=== PATIENT | male | born 1970 | race Caucasian/White ===

== ENCOUNTER 2019-05-30 19:17 | Inpatient (IN) | payer OTHER ==
[~2019-05-30 19:17] MED LIST: ISOVUE-370 76%-LOCM 1 ML ONE
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
[2019-05-30 19:56] LABS: #Eosinphils 0.2 thou/uL (0.0-0.7); #Lymphocytes 0.7 thou/uL (1.20-3.40); #Monocytes 0.7 thou/uL (0.11-0.59); #Neutrophils 9.8 thou/uL (1.40-6.50); %Basophils 0.1 % (0.0-1.0); %Eosinophils 1.7 % (0.0-10.0); %Lymphocytes 6.3 % (21.0-51.0); %Monocytes 6.2 % (0.0-10.0); %Neutrophils 85.6 % (42.0-75.0); Hemoglobin 14.2 g/dL (14.0-18.0); Mean Corpuscular HGB CONC 32.7 g/dL (32.0-36.0); Mean Corpuscular Hemoglobin 29.5 pg (27.0-31.0); Mean Corpuscular Volume 90.2 fL (78.0-98.0); Mean Platelet Volume 8.1 fL (7.4-10.4); Platelet Count 278 thou/uL (130-400); RBC Distribution Width 11.6 % (11.5-14.5); White Blood Cell (WBC) Count 11.4 thou/uL (4.8-10.8)
[2019-05-30] MEDS ORDERED: Morphine 4 MG/ML VIAL ONE ×2 (19:57→22:15)
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
[2019-05-30] MEDS ORDERED: Adacel (T-DAP) 0.5 ML SYRINGE ONE (19:58)
[2019-05-30] MEDS ORDERED: Ondansetron PF 4 MG/2 ML Vial ONE (19:58)
[2019-05-30 20:02] LABS: PTT 25.5 SEC (22.9-36.1); Prothrombin Time 13.4 SEC (12.0-14.7)
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
[2019-05-30 20:18] LABS: ALT (SGPT) 32 U/L (8-55); AST (SGOT) 61 U/L (5-34); Albumin 4.2 g/dL (3.5-5.0); Alkaline Phosphatase 88 U/L (40-110); Anion Gap 13 mmol/L (10-20); BUN (Urea Nitrogen) 12 mg/dL (8.9-20.6); Bilirubin, Total 0.7 mg/dL (0.2-1.2); Calc. Creatinine Clearance 0 mL/min (70-130); Calcium 9.5 mg/dL (7.8-10.44); Carbon Dioxide 26 mmol/L (22-29); Chloride 103 mmol/L (98-107); Estimated GFR-MDRD 61; Globulin 2.9 g/dL (2.4-3.5); Glucose 100 mg/dL (70-105); Potassium 3.8 mmol/L (3.5-5.1); Protein, Total 7.1 g/dL (6.0-8.3); Sodium 138 mmol/L (136-145)
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
[2019-05-30 21:23] LABS: Acetaminophen Less than 6.0 mcg/mL (10.0-30.0); Alcohol Less than 10 mg/dL (Less than 10); Salicylate Less than 8.0 mg/dL (15.0-30.0)
[2019-05-30] MEDS ORDERED: Dextrose 5% in Water 1,000 ML IV PRN ×2 (21:43→21:53)
[2019-05-30] MEDS ORDERED: Promethazine HCl 25 MG/ML VIAL IM/IV PRN (21:43)
[2019-05-30] MEDS ORDERED: hydrALAZINE 20 MG/ML VIAL SLOW IVP PRN (21:43)
[2019-05-30] MEDS ORDERED: Ondansetron PF 4 MG/2 ML Vial IVP PRN (21:43)
[2019-05-30] MEDS ORDERED: Morphine 4 MG/ML VIAL SLOW IVP PRN (21:43)
[2019-05-30] MEDS ORDERED: Dextrose 50% Abboject 50 ML SYRINGE SLOW IVP PRN ×2 (21:43→21:53)
[2019-05-30 21:54] LABS: Bilirubin Negative (Negative); Blood, Urine 2+ (Negative); Clarity Clear (Clear); Glucose, Urine (Dipstick) Normal (Negative); Leukocyte Negative Leu/uL (Negative); Nitrite Negative (Negative); Protein, Urine (Dipstick) 200 mg/dL (Neg-Trace); RBC/HPF 21-50 HPF (0-3); Squamous Epithelial None Seen HPF (0-3)
[2019-05-30 22:01] LABS: Amphetamine Detected (NotDetected); Barbiturates Screen Not Detected (NotDetected); Benzodiazepine Screen Not Detected (NotDetected); Cocaine Metabolite Screen Not Detected (NotDetected); Medtox Control Line Valid? VALID (VALID); Medtox Reader # READER 4; Methadone Not Detected (NotDetected); Methamphetamine Detected (NotDetected); Opiate Screen Detected (NotDetected); Oxycodone Screen Not Detected (NotDetected); Phencyclidine (PCP) Not Detected (NotDetected); THC/Cannabinoid Screen Not Detected (NotDetected); Tricyclic Screen Not Detected (NotDetected)
[2019-05-30 22:08] LABS: Bacteria/HPF Rare-Few HPF (None Seen); Sperm/HPF Rare HPF (None Seen)
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
[2019-05-31 00:46] VITALS: BMI 28.7
[2019-05-31] MEDS: Sodium Chloride 0.9% 1,000 ML IV SCH ×3 (01:04→17:28)
[2019-05-31 04:11] LABS: #Lymphocytes 0.4 thou/uL (1.20-3.40); #Monocytes 0.8 thou/uL (0.11-0.59); #Neutrophils 7.7 thou/uL (1.40-6.50); %Basophils 0.1 % (0.0-1.0); %Eosinophils 0.2 % (0.0-10.0); %Monocytes 9.2 % (0.0-10.0); %Neutrophils 86.6 % (42.0-75.0); Hemoglobin 12.7 g/dL (14.0-18.0); Mean Corpuscular HGB CONC 34.1 g/dL (32.0-36.0); Mean Corpuscular Hemoglobin 31.2 pg (27.0-31.0); Mean Corpuscular Volume 91.5 fL (78.0-98.0); Mean Platelet Volume 7.8 fL (7.4-10.4); Platelet Count 222 thou/uL (130-400); RBC Distribution Width 11.6 % (11.5-14.5); Red Blood Cell (RBC) Count 4.08 mill/uL (4.70-6.10); White Blood Cell (WBC) Count 8.9 thou/uL (4.8-10.8)
[2019-05-31 04:42] LABS: Anion Gap 10 mmol/L (10-20); BUN (Urea Nitrogen) 16 mg/dL (8.9-20.6); Calc. Creatinine Clearance 106 mL/min (70-130); Calcium 8.5 mg/dL (7.8-10.44); Carbon Dioxide 26 mmol/L (22-29); Chloride 105 mmol/L (98-107); Estimated GFR-MDRD 77; Glucose 134 mg/dL (70-105); Magnesium 2.1 mg/dL (1.6-2.6); Phosphorus 3.8 mg/dL (2.3-4.7); Potassium 4.2 mmol/L (3.5-5.1); Sodium 137 mmol/L (136-145)
--- NOTE | 2019-05-31 07:19 | CT ---
CT BRAIN WITHOUT CONTRAST: Date: 05/31/19 COMPARISON: 05/30/19. HISTORY: Cerebral contusion in frontal lobe. TECHNIQUE: Multiple contiguous axial images were obtained in a CT of the brain without contrast. FINDINGS: There is a stable small left frontal contusion with hyperdensity consistent with hemorrhagic conversi on. No intraventricular hemorrhage or hydrocephalus seen. No large confluent infarction seen. The calvarium and overlying soft tissues are unremarkable. The visualized paranasal sinuses and masto id air cells are well aerated. IMPRESSION: Stable left frontal contusion. POS: C
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
[2019-05-31] MEDS ORDERED: FLU VACC QS2019-20(6MOS UP)/PF 60 MCG/0.5 ML SYRINGE IM ONE (09:00)
[2019-05-31] MEDS: Famotidine/PF 20 mg/2ml Vial SLOW IVP SCH ×2 (09:17→20:33)
--- NOTE | 2019-05-31 09:22 | RAD ---
CHEST 1 VIEW PORTABLE: Date: 05/31/19 HISTORY: Left apical pneumothorax. FINDINGS: Monitor leads overlie the chest. Heart size is normal. The lungs are clear. No identifiable pneumotho rax. IMPRESSION: No significant acute intrathoracic disease. POS: TPC
--- NOTE | 2019-05-31 09:26 | PRG ---
DATE OF SERVICE: 05/31/2019 SUBJECTIVE: Mr. Swann this morning is more comfortable, though admittedly has significant pain with most movements or with even mild physical touch, most to the hands and feet. He has sensation in all four upper extremities and has minimal movement in the bilateral upper and bilateral lower extremities. He has the most motor function in the left lower extremity, was found that he has cord edema, T2 signal change at C4-5 on the MRI that was obtained overnight. The plan will remain the same. There is no large traumatic disk. There is no obvious ligamentous injury. The small chip fracture at the anterior inferior plate of C4 does appear to be acute on MRI. From the surgery's plan, at this time will likely be noninterventional. He will need aggressive rehab and continue to follow up. Job ID: [id number]
[2019-05-31] MEDS ORDERED: Acetaminophen 1,000 MG in Premix Bag 1 BAG IVPB SCH (10:00)
--- NOTE | 2019-05-31 10:22 | CT ---
CTA OF THE HEAD WITH AND WITHOUT IV CONTRAST AND 3-D REFORMATTED IMAGING. CTA OF THE NECK WITH IV CONTRAST AND 3-D REFORMATTED IMAGING. INDICATION: Level 2 trauma concern for stroke COMPARISON: Noncontrast CT the brain dated May 22, 2019 FINDINGS: CTA OF THE HEAD WITH AND WITHOUT CONTRAST: CTA OF THE BRAIN: Right ICA: Patent. Right MCA: Patent. Right MAYELA: Patent. ACOM: Patent. Left ICA: Patent. Left MCA: Patent. Left MAYELA: Patent. PCOMs: Patent. Vertebral arteries: There is poor opacification of the distal vertebral artery at the level of C1 ramires spicious for dissection and complete occlusion. There is complete occlusion of the mid left cervical vertebral artery at the level of C4 with reconstitution at the level of the upper C3 vertebr al level. Basilar Artery: Patent. senior c software developer: Patent. Incidentals: None. CTA OF THE NECK WITH CONTRAST: Right CCA: Patent. Right ICA: Patent. Right Subclavian: Patent. Right Vertebral Artery: Patent. Left CCA: Patent. Left ICA: Patent. Left Subclavian: Patent. Left Vertebral Artery: The left vertebral artery is occluded at the level of the C4 vertebral level and reconstitutes at the overt C3 vertebral level. The distal left cervical vertebral artery occludes at the level of C1 and reconstitutes just proximal to the posterior left C1 arch. Aerodigestive tract: Clear. Parotids/Submandibular/Thyroid glands: Normal. Lymph nodes: No pathologically enlarged lymph nodes. Lung Apices: Small left apical pneumothorax Bones: Left occipital condyle fracture, C4 vertebral body fracture and right first rib fracture as d etailed on the CT of the cervical spine. Incidentals: None. IMPRESSION: 1. 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 2. No additional hemodynamically significant stenosis. 3. Findings called to Dr. Sanchez at 8:25 PM on May 30, 2019 Transcribed Date/Time: 05/31/2019 10:22 AM
[2019-05-31] MEDS ORDERED: traMADol HCl 50 MG TAB PO PRN (10:31)
[2019-05-31] MEDS: Acetaminophen 500 MG TAB PO SCH ×3 (11:18→22:45)
[2019-05-31] MEDS ORDERED: Gabapentin 300 MG CAP PO SCH (11:30)
[2019-05-31] MEDS: traMADol HCl 50 MG TAB PO SCH ×3 (11:35→22:45)
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
[2019-05-31] MEDS: Gabapentin 300 MG CAP PO SCH ×2 (15:19→20:33)
[2019-05-31 15:35] LABS: #Eosinphils 0.1 thou/uL (0.0-0.7); #Lymphocytes 0.7 thou/uL (1.20-3.40); #Monocytes 0.7 thou/uL (0.11-0.59); %Basophils 0.3 % (0.0-1.0); %Eosinophils 1.1 % (0.0-10.0); %Lymphocytes 10.3 % (21.0-51.0); %Monocytes 11.2 % (0.0-10.0); %Neutrophils 77.1 % (42.0-75.0); Hemoglobin 11.9 g/dL (14.0-18.0); Mean Corpuscular HGB CONC 34.5 g/dL (32.0-36.0); Mean Corpuscular Hemoglobin 31.3 pg (27.0-31.0); Mean Corpuscular Volume 90.8 fL (78.0-98.0); Mean Platelet Volume 7.9 fL (7.4-10.4); Platelet Count 220 thou/uL (130-400); RBC Distribution Width 11.7 % (11.5-14.5); Red Blood Cell (RBC) Count 3.78 mill/uL (4.70-6.10); White Blood Cell (WBC) Count 6.4 thou/uL (4.8-10.8)
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
[2019-06-01 04:54] LABS: #Eosinphils 0.1 thou/uL (0.0-0.7); #Lymphocytes 0.6 thou/uL (1.20-3.40); #Monocytes 0.7 thou/uL (0.11-0.59); %Basophils 0.1 % (0.0-1.0); %Eosinophils 1.6 % (0.0-10.0); %Lymphocytes 9.3 % (21.0-51.0); %Monocytes 10.5 % (0.0-10.0); %Neutrophils 78.4 % (42.0-75.0); Hemoglobin 11.7 g/dL (14.0-18.0); Mean Corpuscular HGB CONC 35.1 g/dL (32.0-36.0); Mean Corpuscular Hemoglobin 31.9 pg (27.0-31.0); Mean Platelet Volume 7.7 fL (7.4-10.4); Platelet Count 189 thou/uL (130-400); RBC Distribution Width 11.6 % (11.5-14.5); Red Blood Cell (RBC) Count 3.66 mill/uL (4.70-6.10); White Blood Cell (WBC) Count 6.4 thou/uL (4.8-10.8)
[2019-06-01] MEDS: Acetaminophen 500 MG TAB PO SCH ×4 (05:08→22:52)
[2019-06-01] MEDS: traMADol HCl 50 MG TAB PO SCH ×4 (05:08→22:52)
[2019-06-01 05:52] LABS: Anion Gap 10 mmol/L (10-20); BUN (Urea Nitrogen) 13 mg/dL (8.9-20.6); Calc. Creatinine Clearance 137 mL/min (70-130); Calcium 8.3 mg/dL (7.8-10.44); Carbon Dioxide 25 mmol/L (22-29); Chloride 106 mmol/L (98-107); Estimated GFR-MDRD Greater than 90; Glucose 105 mg/dL (70-105); Magnesium 2.2 mg/dL (1.6-2.6); Phosphorus 2.3 mg/dL (2.3-4.7); Potassium 3.9 mmol/L (3.5-5.1); Sodium 137 mmol/L (136-145)
[2019-06-01] MEDS: Gabapentin 300 MG CAP PO SCH ×3 (08:34→20:29)
[2019-06-01] MEDS: Aspirin 325 mg Enteric Coated Tablet PO SCH (08:34)
[2019-06-01] MEDS: Famotidine/PF 20 mg/2ml Vial SLOW IVP SCH (08:34)
[2019-06-01] MEDS: Famotidine 20 MG TAB PO SCH ×2 (09:14→20:30)
[2019-06-01] MEDS: Polyethylene Glycol 3350 17 GM Packet PO SCH (09:19)
[2019-06-01] MEDS: Senokot S 8.6-50 MG TAB PO SCH ×2 (09:19→20:30)
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
[2019-06-02] MEDS: Acetaminophen 500 MG TAB PO SCH ×4 (04:40→23:24)
[2019-06-02] MEDS: Cyclobenzaprine 10 MG TAB PO PRN (04:40)
[2019-06-02] MEDS: traMADol HCl 50 MG TAB PO SCH ×4 (04:40→23:24)
[2019-06-02] MEDS: Gabapentin 300 MG CAP PO SCH ×3 (08:57→20:39)
[2019-06-02] MEDS: Famotidine 20 MG TAB PO SCH ×2 (08:57→20:39)
[2019-06-02] MEDS: Polyethylene Glycol 3350 17 GM Packet PO SCH (08:57)
[2019-06-02] MEDS: Senokot S 8.6-50 MG TAB PO SCH ×2 (08:57→20:38)
[2019-06-02] MEDS: Aspirin 325 mg Enteric Coated Tablet PO SCH (08:57)
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
[2019-06-03] MEDS: Acetaminophen 500 MG TAB PO SCH ×4 (04:24→22:19)
[2019-06-03] MEDS: traMADol HCl 50 MG TAB PO SCH ×4 (04:25→22:19)
[2019-06-03] MEDS: Senokot S 8.6-50 MG TAB PO SCH ×2 (08:16→20:07)
[2019-06-03] MEDS: Gabapentin 300 MG CAP PO SCH ×3 (08:16→20:07)
[2019-06-03] MEDS: Aspirin 325 mg Enteric Coated Tablet PO SCH (08:16)
[2019-06-03] MEDS: Polyethylene Glycol 3350 17 GM Packet PO SCH (08:16)
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
[2019-06-04] MEDS: Acetaminophen 500 MG TAB PO SCH ×4 (05:29→22:16)
[2019-06-04] MEDS: traMADol HCl 50 MG TAB PO SCH ×4 (05:30→22:15)
[2019-06-04] MEDS: Gabapentin 300 MG CAP PO SCH ×3 (09:15→21:18)
[2019-06-04] MEDS: Aspirin 325 mg Enteric Coated Tablet PO SCH (09:15)
[2019-06-04] MEDS: Senokot S 8.6-50 MG TAB PO SCH ×2 (09:15→21:18)
[2019-06-04] MEDS: Polyethylene Glycol 3350 17 GM Packet PO SCH (09:16)
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
[2019-06-05] MEDS: Acetaminophen 500 MG TAB PO SCH ×4 (05:07→23:02)
[2019-06-05] MEDS: traMADol HCl 50 MG TAB PO SCH ×4 (05:08→23:02)
[2019-06-05] MEDS: Polyethylene Glycol 3350 17 GM Packet PO SCH (10:17)
[2019-06-05] MEDS: Aspirin 325 mg Enteric Coated Tablet PO SCH (10:17)
[2019-06-05] MEDS: Gabapentin 300 MG CAP PO SCH ×3 (10:18→20:44)
[2019-06-05] MEDS: Senokot S 8.6-50 MG TAB PO SCH ×2 (10:18→20:44)
[2019-06-05] MEDS ORDERED: Magnesium Citrate 300 ML BOT PO SCH (10:30)
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
[2019-06-06] MEDS: traMADol HCl 50 MG TAB PO SCH ×4 (05:26→23:48)
[2019-06-06] MEDS: Acetaminophen 500 MG TAB PO SCH ×4 (05:26→23:48)
[2019-06-06] MEDS: Polyethylene Glycol 3350 17 GM Packet PO SCH (08:04)
[2019-06-06] MEDS: Gabapentin 300 MG CAP PO SCH ×3 (08:04→21:16)
[2019-06-06] MEDS: Aspirin 325 mg Enteric Coated Tablet PO SCH (08:04)
[2019-06-06] MEDS: Senokot S 8.6-50 MG TAB PO SCH ×2 (08:04→21:16)
--- NOTE | 2019-06-06 11:00 | PRG ---
DATE OF SERVICE: 06/06/2019 SUBJECTIVE: Please see Santos Jameson's note for full details. No significant change with Mr. Swann. OBJECTIVE: GENERAL: He is resting comfortably this morning. VITAL SIGNS: Stable. CHEST: Clear. HEART: Regular rate and rhythm without murmur. ABDOMEN: Soft, only slightly distended but nontender. EXTREMITIES: He does have fairly decent movement of his left foot and leg. Right leg movement is limited as is limited of his bilateral upper extremities. ASSESSMENT: Spinal cord injury, bilateral wrist fractures. PLAN: Working on rehab for Mr. Swann, may potentially be an LTAC candidate. Job ID: [id number]
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
[2019-06-06] MEDS: Enoxaparin Sodium 30 MG/0.3 ML SYRINGE SC SCH (21:16)
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
[2019-06-07] MEDS: Acetaminophen 500 MG TAB PO SCH ×4 (04:52→22:59)
[2019-06-07] MEDS: traMADol HCl 50 MG TAB PO SCH ×4 (04:53→22:59)
[2019-06-07 05:05] LABS: #Eosinphils 0.3 thou/uL (0.0-0.7); #Lymphocytes 0.8 thou/uL (1.20-3.40); #Monocytes 0.7 thou/uL (0.11-0.59); #Neutrophils 4.4 thou/uL (1.40-6.50); %Basophils 0.6 % (0.0-1.0); %Eosinophils 4.7 % (0.0-10.0); %Lymphocytes 13.3 % (21.0-51.0); %Monocytes 11.4 % (0.0-10.0); Hemoglobin 11.9 g/dL (14.0-18.0); Mean Corpuscular HGB CONC 33.3 g/dL (32.0-36.0); Mean Corpuscular Hemoglobin 30.4 pg (27.0-31.0); Mean Corpuscular Volume 91.2 fL (78.0-98.0); Platelet Count 296 thou/uL (130-400); RBC Distribution Width 12.1 % (11.5-14.5); Red Blood Cell (RBC) Count 3.91 mill/uL (4.70-6.10); White Blood Cell (WBC) Count 6.2 thou/uL (4.8-10.8)
[2019-06-07 05:25] LABS: Anion Gap 14 mmol/L (10-20); BUN (Urea Nitrogen) 29 mg/dL (8.9-20.6); Calc. Creatinine Clearance 144 mL/min (70-130); Calcium 9.3 mg/dL (7.8-10.44); Carbon Dioxide 27 mmol/L (22-29); Chloride 101 mmol/L (98-107); Estimated GFR-MDRD Greater than 90; Glucose 101 mg/dL (70-105); Potassium 3.6 mmol/L (3.5-5.1); Sodium 138 mmol/L (136-145)
[2019-06-07] MEDS: Senokot S 8.6-50 MG TAB PO SCH ×2 (09:51→21:44)
[2019-06-07] MEDS: Gabapentin 300 MG CAP PO SCH ×3 (09:51→21:44)
[2019-06-07] MEDS: Polyethylene Glycol 3350 17 GM Packet PO SCH (09:51)
[2019-06-07] MEDS: Enoxaparin Sodium 30 MG/0.3 ML SYRINGE SC SCH ×2 (09:52→21:43)
[2019-06-07] MEDS: Aspirin 325 mg Enteric Coated Tablet PO SCH (09:54)
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
[2019-06-08] MEDS: traMADol HCl 50 MG TAB PO SCH ×4 (03:17→23:14)
[2019-06-08] MEDS: Acetaminophen 500 MG TAB PO SCH ×4 (03:17→23:14)
[2019-06-08] MEDS: Aspirin 325 mg Enteric Coated Tablet PO SCH (09:58)
[2019-06-08] MEDS: Senokot S 8.6-50 MG TAB PO SCH ×2 (09:59→21:13)
[2019-06-08] MEDS: Gabapentin 300 MG CAP PO SCH ×3 (09:59→21:14)
[2019-06-08] MEDS: Polyethylene Glycol 3350 17 GM Packet PO SCH (09:59)
[2019-06-08] MEDS: Enoxaparin Sodium 30 MG/0.3 ML SYRINGE SC SCH ×2 (09:59→21:14)
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
[2019-06-08] MEDS: Cyclobenzaprine 10 MG TAB PO PRN (21:13)
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
[2019-06-09] MEDS: traMADol HCl 50 MG TAB PO SCH ×2 (05:30→11:18)
[2019-06-09] MEDS: Acetaminophen 500 MG TAB PO SCH ×2 (05:30→11:17)
[2019-06-09] MEDS: Aspirin 325 mg Enteric Coated Tablet PO SCH (09:31)
[2019-06-09] MEDS: Enoxaparin Sodium 30 MG/0.3 ML SYRINGE SC SCH (09:32)
[2019-06-09] MEDS: Gabapentin 300 MG CAP PO SCH ×2 (09:32→14:21)
[2019-06-09] MEDS: Cyclobenzaprine 10 MG TAB PO PRN (09:38)
[2019-06-09] MEDS: Polyethylene Glycol 3350 17 GM Packet PO SCH (09:51)
[2019-06-09] MEDS: Senokot S 8.6-50 MG TAB PO SCH (09:52)
[2019-06-09 11:00] VITALS: BP 110/69; TEMP 97.9
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
== END 2019-06-09 14:35 | DRG 964 ==
LOC: ERS 19:17 → CCU 21:43 → SJJU 06-01 02:42
PROVIDERS: ADMIT Surgery; ATTEND Surgery
PROC: 0RSJXZZ Reposition Right Shoulder Joint, External Approach (ICD-10-PCS; principal; 2019-05-30)
DX: S06.349A Traumatic hemorrhage of right cerebrum with loss of consciousness of unspecified duration, initial encounter (principal); S14.121A Central cord syndrome at C1 level of cervical spinal cord, initial encounter; S12.300A Unspecified displaced fracture of fourth cervical vertebra, initial encounter for closed fracture; S14.0XXA Concussion and edema of cervical spinal cord, initial encounter; S22.41XA Multiple fractures of ribs, right side, initial encounter for closed fracture; S32.049A Unspecified fracture of fourth lumbar vertebra, initial encounter for closed fracture; S32.059A Unspecified fracture of fifth lumbar vertebra, initial encounter for closed fracture; S27.0XXA Traumatic pneumothorax, initial encounter; G81.91 Hemiplegia, unspecified affecting right dominant side; S36.892A Contusion of other intra-abdominal organs, initial encounter; S02.113A Unspecified occipital condyle fracture, initial encounter for closed fracture; R40.2352 Coma scale, best motor response, localizes pain, at arrival to emergency department; R40.2142 Coma scale, eyes open, spontaneous, at arrival to emergency department; R40.2252 Coma scale, best verbal response, oriented, at arrival to emergency department; S52.042A Displaced fracture of coronoid process of left ulna, initial encounter for closed fracture; S43.004A Unspecified dislocation of right shoulder joint, initial encounter; F17.210 Nicotine dependence, cigarettes, uncomplicated; V29.9XXA Motorcycle rider (driver) (passenger) injured in unspecified traffic accident, initial encounter; Z28.21 Immunization not carried out because of patient refusal
CPT/HCPCS: 23650; 36415; 51702; 70450; 70496; 70498; 70551; 71045; 71260; 72125; 72141; 72170; 74177; 80048; 80053; 80306; 80307; 81003; 81015; 83605; 83690; 83735; 84100; 85025; 85610; 85730; 86850; 86900; 86901; 90471; 90715; 93005; 94640; 96361; 96374; 96375; 96376; G0390; J0131; J1650; J2270; J2405; J7620; Q9966; S0028

== ENCOUNTER 2019-09-28 07:59 | Observation (INO) | payer OTHER ==
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
[2019-09-28] MEDS ORDERED: Midazolam HCl 2 mg/2 ml Vial ONE ×2 (08:39→08:55)
[2019-09-28] MEDS ORDERED: Fentanyl 100 MCG/2 ML VIAL ONE (08:39)
[2019-09-28] MEDS ORDERED: Lidocaine 1% PF 5 ML VIAL ONE (09:40)
[2019-09-28] MEDS ORDERED: Ketorolac Tromethamine 30 MG/ML VIAL ONE (09:40)
[2019-09-28] MEDS ORDERED: Ondansetron PF 4 MG/2 ML Vial ONE (09:40)
[2019-09-28] MEDS ORDERED: Dexamethasone 20 MG/5 ML VIAL ONE (09:40)
[2019-09-28] MEDS ORDERED: PROPOFOL 200 MG/20 ML VIAL ONE (09:40)
[2019-09-28] MEDS ORDERED: Rocuronium Bromide 10 MG/ML (10ML VIAL) ONE (09:40)
[2019-09-28] MEDS ORDERED: Glycopyrrolate 0.2 MG/ML 5 ML SYRINGE ONE (09:40)
--- NOTE | 2019-09-28 11:05 | OP ---
DATE OF PROCEDURE: 09/28/2019 SORT MANAGER: Julio Hall PA-C INDICATION: Pain. DIAGNOSIS: History of incomplete spinal cord injury with cervical stenosis in T2 signal change. PROCEDURE PERFORMED: Anterior cervical diskectomy and fusion, C4-C5. ANESTHESIA: General. DESCRIPTION OF PROCEDURE: The patient was brought into the operating room and placed under general anesthesia. He was placed on table in a supine position. A transverse incision was planned over the lateral aspect of the neck on the right. After prepping and draping and after an appropriate preoperative pause, the incision was created. The soft tissues were swept away from midline. The underlying platysma muscle was identified and incised. A blunt tissue plane anterior to the sternocleidomastoid muscle was used to gain access to the prevertebral space. After placing self-retaining retractors in obtaining the appropriate level with C-arm fluoroscopy, an annulotomy was performed in the C4-C5 disk space. All disk material as well as anterior and posterior osteophytes were removed. After completing the decompression, a 7-mm lordotic PEEK cage packed with allograft and autograft material was placed within the interbody space. An anterior cervical plate was then fashioned to the front of spine and secured with a total of 4 fixed screws. Midline and lateral structures were inspected and found to be free from significant trauma. The wound was irrigated. Hemostasis was maintained throughout. The wound was then closed in anatomic layers and a pressure dressing was applied. There were no known procedural complications. Job ID: [id number]
[2019-09-28] MEDS ORDERED: Tamsulosin HCl 0.4 MG CAP ONE (12:53)
[2019-09-28] MEDS ORDERED: Promethazine HCl 25 MG/ML VIAL ONE (13:39)
[2019-09-28] MEDS ORDERED: Morphine 2 MG/ML SYRINGE ONE (13:39)
[2019-09-28] MEDS ORDERED: Cyclobenzaprine 10 MG TAB ONE (15:03)
[2019-09-28] MEDS ORDERED: Cyclobenzaprine 10 MG TAB PO PRN (16:43)
[2019-09-28] MEDS ORDERED: Morphine 2 MG/ML SYRINGE SLOW IVP PRN (16:43)
[2019-09-28] MEDS ORDERED: diphenhydrAMINE 50 MG/ML VIAL IVP PRN (16:43)
[2019-09-28] MEDS ORDERED: Acetaminophen/Codeine 30-300mg Tablet PO PRN ×2 (16:43)
[2019-09-28] MEDS ORDERED: Ondansetron PF 4 MG/2 ML Vial IVP PRN (16:43)
[2019-09-28] MEDS ORDERED: Acetaminophen 325 MG TAB PO PRN (16:43)
[2019-09-28] MEDS: Sodium Chloride 0.9% 1,000 ML IV SCH (17:28)
[2019-09-28] MEDS: CEFAZOLIN 2 GM in Premix Bag 1 BAG IVPB SCH (18:02)
[2019-09-28 18:27] VITALS: BMI 32.3
[2019-09-28] MEDS: Gabapentin 300 MG CAP PO SCH (19:57)
[2019-09-28] MEDS ORDERED: Melatonin 3 MG TAB PO SCH (21:00)
[2019-09-29] MEDS: CEFAZOLIN 2 GM in Premix Bag 1 BAG IVPB SCH (00:04)
[2019-09-29] MEDS ORDERED: Tamsulosin HCl 0.4 MG CAP PO SCH (06:00)
[2019-09-29] MEDS ORDERED: Dexamethasone 10 MG/ML VIAL SLOW IVP SCH (07:45)
[2019-09-29] MEDS: Sodium Chloride 0.9% 1,000 ML IV SCH (08:53)
[2019-09-29] MEDS ORDERED: Aspirin 81 mg Enteric Coated Tablet PO SCH (09:00)
[2019-09-29] MEDS: Gabapentin 300 MG CAP PO SCH ×2 (09:06→16:06)
[2019-09-29 10:48] VITALS: BP 132/84; TEMP 97.9
== END 2019-09-29 16:34 ==
LOC: SDC 07:59 → T4-B 14:48
PROVIDERS: ADMIT Neurological Surgery; ATTEND Neurological Surgery
PROC: 0RG10A0 Fusion of Cervical Vertebral Joint with Interbody Fusion Device, Anterior Approach, Anterior Column, Open Approach (ICD-10-PCS; principal; 2019-09-28)
PROC: 0RT30ZZ Resection of Cervical Vertebral Disc, Open Approach (ICD-10-PCS; 2019-09-28)
DX: M48.02 Spinal stenosis, cervical region (principal); S14.109A Unspecified injury at unspecified level of cervical spinal cord, initial encounter; M47.812 Spondylosis without myelopathy or radiculopathy, cervical region; Z79.82 Long term (current) use of aspirin; Z79.899 Other long term (current) drug therapy; V29.9XXA Motorcycle rider (driver) (passenger) injured in unspecified traffic accident, initial encounter
CPT/HCPCS: 76000; 96365; 96375; 96376; C1713; C1776; G0378; J0690; J1100; J1885; J2001; J2250; J2270; J2405; J2550; J2704; J3010